=== PATIENT | female | born 1990 | race Caucasian/White ===

== ENCOUNTER → 2020-04-12 | Day surgery (SDC) | payer OTHER ==
[~2020-04-12] MED LIST: Bupivacaine 0.5%/EPINEPHrine 1:200,000 50 ML MDV ONE; Dexamethasone 4 MG/ML 5 ML MDV ONE; Ketorolac 15 MG/ML SDV IVPUSH ONE; Ketorolac 30 MG/ML SDV ONE; Lactated Ringers 1,000 ML IV SCH; Lactated Ringers 1,000 ML ONE; Lidocaine 1% 4 ML ONE; Lidocaine 1%/Sod Bicarbonate in NS 8.4% 1 ML Syringe IDERM PRN; Midazolam 1 MG/ML 2 ML SDV ONE; Ondansetron 4 MG/2 ML SDV IVPUSH PRN; Ondansetron 4 MG/2 ML SDV ONE; Propofol 200 MG/20 ML SDV ONE; Rocuronium 50 MG/5 ML Vial ONE; Sodium Chloride 0.9% 10 ML Syringe FLUSH PRN; ceFAZolin 1 GM Vial ONE; ePHEDrine Sulfate/0.9% NaCl/Pf 25 MG/5 ML SYRINGE IV ONE; fentaNYL 100 MCG/2 ML SDV IVPUSH PRN; fentaNYL 100 MCG/2 ML SDV ONE; fentaNYL 250 MCG/5 ML SDV ONE; traMADol 50 MG Tab PO ONE
--- NOTE | 2020-04-12 07:17 | PCM.PREANE ---
Preanesthetic Assessment - Procedure Proposed Procedure: lap hernia repair - Anesthesia/Transfusion/Family Hx Anesthesia History: Prior Anesthesia Without Reaction Family History of Anesthesia Reaction: No Transfusion History: No Prior Transfusion(s) - Review of Systems General: No Symptoms Pulmonary: No Symptoms Cardiovascular: No Symptoms Gastrointestinal: No Symptoms Neurological: Seizure (17 years ago-no meds- allergic reactions) Other: Reports: Anxiety - Physical Assessment NPO Status Date: 04/11/20 NPO Status Time: 20:30 Vital Signs: Last Vital Signs Temp 97.3 F 04/12/20 06:35 Pulse 64 04/12/20 06:35 Resp 16 04/12/20 06:35 BP 112/71 04/12/20 06:35 Pulse Ox 99 04/12/20 06:35 Height: 5 ft 5 in Weight: 64.41 kg ASA Class: 2 Mental Status: Alert & Oriented x3 Airway Class: Mallampati = 1 Dentition: Reports: Normal Dentition Thyro-Mental Finger Breadths: 3 Mouth Opening Finger Breadths: 3 ROM/Head Extension: Full Lungs: Clear to Auscultation, Normal Respiratory Effort Cardiovascular: Regular Rate, Regular Rhythm - Lab Values: Laboratory Last Values Urine HCG, Qual Negative (NEGATIVE) 04/12/20 06:37 - Allergies Allergies/Adverse Reactions: Allergies Allergy/AdvReac Type Severity Reaction Status Date / Time acetaminophen [From [place]] Allergy Nausea and Verified 04/11/20 16:47 Vomiting codeine Allergy nightmares Verified 04/11/20 16:47 hydrocodone [From [place]] Allergy Nausea and Verified 04/11/20 16:47 Vomiting Penicillins Allergy Nausea and Verified 04/11/20 16:47 Vomiting - Blood Blood Available: No - Acknowledgements Anesthesia Type Planned: General Anesthesia Pt an Appropriate Candidate for the Planned Anesthesia: Yes Alternatives and Risks of Anesthesia Discussed w Pt/Guardian: Yes Pt/Guardian Understands and Agrees with Anesthesia Plan: Yes PreAnesthesia Questionnaire HEENT History: Reports: Impaired Vision Cardiovascular History: Reports: None Respiratory History: Reports: None Gastrointestinal History: Reports: Other (See Below) Other Gastrointestinal History: incisional hernia, umbilical hernia Genitourinary History: Reports: None CHIEF OF PEDIATRIC UROLOGY History: Reports: None Musculoskeletal History: Reports: None Neurological History: Reports: Migraines (not had in 1.5 years), Seizure Psychiatric History: Reports: Anxiety Endocrine/Metabolic History: Reports: None Hematologic History: Reports: None Immunologic History: Reports: None Oncologic (Cancer) History: Reports: None Dermatologic History: Reports: None - Infectious Disease History Infectious Disease History: Reports: None - Past Surgical History Head Surgeries/Procedures: Reports: None HEENT Surgical History: Reports: None Cardiovascular Surgical History: Reports: None Respiratory Surgical History: Reports: None GI Surgical History: Reports: Hernia Repair/Other Female Surgical History: Reports: None Male Surgical History: Reports: None Endocrine Surgical History: Reports: None Neurological Surgical History: Reports: None Musculoskeletal Surgical History: Reports: None Oncologic Surgical History: Reports: None Dermatological Surgical History: Reports: None - SUBSTANCE USE Smoking Status *Q: Former Smoker (quit couple months ago) Tobacco Use Within Last Twelve Months: Cigarettes Second Hand Smoke Exposure: No Days Per Week of Alcohol Use: 0 Recreational Drug Use History: No - HOME MEDS Home Medications: Home Meds Escitalopram Oxalate 10 mg PO DAILY 04/11/20 [History] buPROPion [Wellbutrin SR] 150 mg PO DAILY 04/11/20 [History] hydrOXYzine HCL [hydrOXYzine] 25 - 50 mg PO Q6H PRN 04/11/20 [History] levonorgestreL [Mirena] 1 dose VAG ASDIRECTED 04/11/20 [History] - CURRENT (IN HOUSE) MEDS Current Meds: Current Medications Lactated Ringer's (Ringers, Lactated) 1,000 mls @ 125 mls/hr IV ASDIRECTED KARMA Stop: 04/12/20 23:00 Last Admin: 04/12/20 06:50 Dose: 125 mls/hr Lidocaine/Sodium Bicarbonate (Buffered Lidocaine 1% In Ns 8.4%) 0.25 ml IDERM ONETIME PRN PRN Reason: Prior to IV Start Stop: 04/12/20 18:00 Last Admin: 04/12/20 06:50 Dose: 0.25 ml Sodium Chloride (Saline Flush) 10 ml FLUSH ASDIRECTED PRN PRN Reason: Keep Vein Open Stop: 04/12/20 18:00
--- NOTE | 2020-04-12 10:00 | PCM.POSTAN ---
POST ANESTHESIA ASSESSMENT - MENTAL STATUS Mental Status: Alert - VITAL SIGNS Vital Signs: Last Vital Signs Temp 97.3 F 04/12/20 06:35 Pulse 64 04/12/20 06:35 Resp 16 04/12/20 06:35 BP 112/71 04/12/20 06:35 Pulse Ox 99 04/12/20 06:35 0953 102 15 98.0 119/58 100% - RESPIRATORY Respiratory Status: Respiratory Rate WNL, Airway Patent, O2 Saturation Stable, Supplemental Oxygen - CARDIOVASCULAR CV Status: Pulse Rate WNL, Blood Pressure Stable - GASTROINTESTINAL GI Status: No Symptoms - PAIN Pain Score: 0 - POST OP HYDRATION Hydration Status: Adequate & Stable
--- NOTE | 2020-04-12 10:11 | PCM.PRNOTE ---
- Free Text/Narrative Note: Date: 04/12/2020 Operation: diagnostic laparoscopy, excision of scar tissue at anterior abdominal wall, repair of ventral hernia with intraperitoneal onlay mesh. Pre-op antibiotics: 2 g ancef IV EBL: 10 cc Findings: dense scar tissue at site of prior primary ventral hernia repair with multiple ethibond sutures. Chronic granulomatous tissue at the level of the skin associated with some of these transfascial sutures. Small 5 mm epigastric hernia containing part of the falciform ligament. A circular 11 cm diameter Ventralite biologic-coated permanent mesh was placed. Detailed Report: The patient was taken to the OR and placed supine on the table. Time out was performed and general endotracheal anesthesia initiated. The left arm was tucked , and the abdomen was prepped and draped in usual sterile fashion. Ioban was applied to the abdomen. A total of 30 cc 0.5% marcaine with epinephrine was injected at incision sites for local anesthetic. A Veress needle was inserted at the LUQ and the peritoneal cavity was insufflated. At a site where air was aspirated with a needle and syringe in the left lower quadrant, a bladed 5 mm trocar was placed and a 5 mm 30 degree laparoscope inserted. There was no injury from Veress placement and the needle was removed. Additional 5 mm ports were placed at the left mid and upper abdomen. The anterior abdominal wall did not have any obvious hernia defect. There was dense scar tissue with visible ethibond suture from prior hernia repair. The overlying peritoneum was cut with scissors and all visible old suture removed. Scar tissue was debrided at a site just superior to the umbilicus. The fascia was opened at this site longitudinally along the midline for a distance of about 3 cm. During dissection , and division of the falciform to make a landing zone for mesh, a 5 mm hernia containing part of the falciform was noted. Next, an elliptical skin incision was made to encompass the chronic granulation tissue, and the skin and associated scar tissue was sharply debrided. There seemed to be chronic inflammatory change associated with the suture. All visible old suture was removed, and this tissue was sent for pathology analysis. A 12 mm port was then placed at this site to permit passage of a Ventralite 11 cm diameter circular biologic-coated permanent mesh. The mesh had been prepared with 0 vicryl suture placed at the edge at 4 quadrant intervals. The larger port was then removed and the fascia was closed primarily at this site with a few 0 vicryl sutures using the laparoscopic suture passer. After making measurements, small stab incisions were made at a 6 cm radius from the center of the 12 mm port site, and the mesh sutures were secured transfascially using the laparoscopic suture passer. The mesh appeared to lay well. The secure strap device was used to place tacks between the transfascial sutures for additional fixation. Pneumoperitoneum was then released, and the 5 mm ports were removed. Skin was closed at all sites with running subcuticular absorbable suture and dressed with dermabond. The patient tolerated the procedure well. Scooter Canada MD General Surgery
--- NOTE | 2020-04-12 11:01 | PCM48HPAN ---
Post Anesthesia Note - EVALUATION WITHIN 48HRS OF ANESTHETIC Vital Signs in Normal Range: Yes Patient Participated in Evaluation: Yes Respiratory Function Stable: Yes Airway Patent: Yes Cardiovascular Function Stable: Yes Hydration Status Stable: Yes Pain Control Satisfactory: Yes Nausea and Vomiting Control Satisfactory: Yes Mental Status Recovered: Yes Vital Signs: Last Vital Signs Temp 98.1 F 04/12/20 10:50 Pulse 74 04/12/20 10:50 Resp 18 04/12/20 10:50 BP 113/63 04/12/20 10:50 Pulse Ox 97 04/12/20 10:50 no complaints
== END | disposition home or self-care (01) ==
LOC: JD.SDS 06:31
PROVIDERS: ATTEND Surgery
DX: K43.2 Incisional hernia without obstruction or gangrene (principal); K66.8 Other specified disorders of peritoneum; L08.89 Other specified local infections of the skin and subcutaneous tissue; L90.5 Scar conditions and fibrosis of skin; F17.210 Nicotine dependence, cigarettes, uncomplicated; F41.9 Anxiety disorder, unspecified; Z88.5 Allergy status to narcotic agent; Z88.0 Allergy status to penicillin; Z79.899 Other long term (current) drug therapy
CPT/HCPCS: 49654; 81025; A9270; C1781; J0171; J0690; J1100; J1885; J2001; J2250; J2405; J2704; J2710; J3010; J3490; J7120; 00790

== ENCOUNTER 2021-01-26 22:00 | Emergency (ER) | payer OTHER ==
[2021-01-26] MEDS ORDERED: Ondansetron 4 MG/2 ML SDV IVPUSH ONE (22:21)
[2021-01-26] MEDS ORDERED: Sodium Chloride 0.9% 1,000 ML IV ONE (22:21)
[2021-01-26] MEDS ORDERED: Haloperidol Lactate 5 MG/ML SDV IM ONE (22:21)
[2021-01-26] MEDS ORDERED: Benztropine 1 MG Tab PO STA (22:21)
--- NOTE | 2021-01-26 22:24 | EDM.PDOC ---
ED HPI GENERAL MEDICAL PROBLEM - General Chief Complaint: Headache Stated Complaint: MIGRANE FOR THE PAST 3DAYS Time Seen by Provider: 01/26/21 22:10 Source of Information: Reports: Patient History Limitations: Reports: No Limitations - History of Present Illness INITIAL COMMENTS - FREE TEXT/NARRATIVE: Mrs. Padilla is a very pleasant 30-year-old woman with a past medical history of migraines since 2005 or 2007, who now presents with a headache for the past 3 days. She states that she feels a constant throbbing sensation to the entire right side of her head, that developed this past 01/23/2021. She has had nausea and vomiting, along with photophobia and phonophobia, although she denies visual changes, such as blurry vision, wavy lines, or flashing lights, and she denies neurologic symptoms, such as tingling, numbness, or weakness. She states that her current symptoms are similar to prior migraines, although the last time that she had a migraine was about 2 years ago. The patient states that she took some Tylenol, which has not helped. She states that she is not sure if she has ever been evaluated by a neurologist. She believes that the last imaging study of her head was 5 to 10 years ago. She has not previously been on anti-migraine medications. Here in the ED, the patient is found to be hemodynamically stable, afebrile, saturating 97% on room air. Prior to Thursday, the patient denies having a recent fever, chills, sore throat, ear pain, nasal or sinus congestion, cough, dyspnea, chest pain, palpitations, nausea, vomiting, constipation, diarrhea, abdominal pain, urinary symptoms, recent weight gain or weight loss, recent bloody bowel movements or black bowel movements, recent joint aches, headaches, or rashes. The patient's PCP is NERISSA Leon. She states that she has already received an influenza vaccine this season. Headache Pain Score (Numeric/FACES): 8 - Related Data Allergies Allergy/AdvReac Type Severity Reaction Status Date / Time acetaminophen [From [place]] AdvReac Nausea and Verified 04/13/20 13:38 Vomiting codeine AdvReac nightmares Verified 04/13/20 13:38 hydrocodone [From [place]] AdvReac Nausea and Verified 04/13/20 13:38 Vomiting Penicillins AdvReac Nausea and Verified 04/13/20 13:38 Vomiting Home Meds: Home Meds FLUoxetine [PROzac] 40 mg PO DAILY 01/26/21 [History] Past Medical History HEENT History: Reports: Impaired Vision Neurological History: Reports: Migraines (presumed) Psychiatric History: Reports: Anxiety - Past Surgical History HEENT Surgical History: Reports: Oral Surgery (dental extractions) GI Surgical History: Reports: Hernia, Abdominal (x 3) Social & Family History - Tobacco Use Tobacco Use Status *Q: Current Some Day Tobacco User Years of Tobacco use: 17 Packs/Tins Daily: 0.1 Tobacco Use Comment: Started smoking at 13 yrs old - Caffeine Use Caffeine Use: Reports: Soda - Alcohol Use Alcohol Use History: No - Recreational Drug Use Recreational Drug Use: No - Living Situation & Occupation Living situation: Reports: , with Spouse, with Family (1 child) 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 - Physical Exam Exam: See Below Exam Limited By: No Limitations General Appearance: Alert, WD/WN, No Apparent Distress Eye Exam: Bilateral Eye: EOMI, Normal Inspection, PERRL Ears: Normal External Exam, Normal Canal, Hearing Grossly Normal, Normal TMs Nose: Normal Inspection, Normal Mucosa, No Blood Throat/Mouth: Normal Inspection, Normal Lips, Normal Teeth, Normal Gums, Normal Oropharynx, Normal Voice, No Airway Compromise Head Exam: Atraumatic, Normocephalic Neck: Normal Inspection, Supple, Non-Tender, Full Range of Motion. No: Lymphadenopathy (L), Lymphadenopathy (R) Respiratory/Chest: No Respiratory Distress, Lungs Clear, Normal Breath Sounds, No Accessory Muscle Use Cardiovascular: Normal Peripheral Pulses, Regular Rate, Rhythm, No Edema, No Gallop, No JVD, No Murmur, No Rub GI/Abdominal: Normal Bowel Sounds, Soft, Non-Tender, No Organomegaly, No Distention, No Abnormal Bruit, No Mass Neuro Exam (Abbreviated): Alert, Oriented, CN II-XII Intact, Normal Cognition, No Motor/Sensory Deficits Back Exam: Normal Inspection, Full Range of Motion, NT Extremities: Normal Inspection, Normal Range of Motion, No Pedal Edema, Normal Capillary Refill Psychiatric: Normal Affect Skin Exam: Warm, Dry, Intact, Normal Color, No Rash Course - Vital Signs Last Recorded V/S: Last Vital Signs Temp 37.7 C 01/26/21 22:06 Pulse 81 01/26/21 22:06 Resp 16 01/26/21 22:06 BP 133/90 01/26/21 22:06 Pulse Ox 97 01/26/21 22:06 - Orders/Labs/Meds Meds: Medications Discontinued Medications Generic Name Dose Route Start Last Admin Trade Name Jeffery PRTiff Reason Stop Dose Admin Benztropine Mesylate 1 mg 01/26/21 22:21 01/26/21 22:31 Benztropine 1 Mg Tab PO 01/26/21 22:22 1 mg ONETIME STA Administration Haloperidol Lactate 5 mg 01/26/21 22:21 01/26/21 22:32 Haloperidol Lactate 5 Mg/Ml Sdv IM 01/26/21 22:22 5 mg ONETIME ONE Administration Sodium Chloride 1,000 mls @ 999 mls/hr 01/26/21 22:21 01/26/21 22:31 Normal Saline IV 01/26/21 23:21 999 mls/hr ONETIME ONE Administration Ondansetron HCl 4 mg 01/26/21 22:21 01/26/21 22:31 Ondansetron 4 Mg/2 Ml Sdv IVPUSH 01/26/21 22:22 4 mg ONETIME ONE Administration - Re-Assessments/Exams Free Text/Narrative Re-Assessment/Exam: 01/26/21 22:22 As above, the patient has been suffering from a right-sided headache, most likely a migraine, with associated nausea, vomiting, photophobia, and phonophobia, since Thursday. Her physical exam, including a thorough neurologic examination, is completely normal. I have ordered treatment with IM Haldol, oral Cogentin, IV Zofran, and IV fluid. 01/26/21 23:15 Notified by Tamara ROPER a few minutes ago that the patient did not get relief from the Haldol, indicating that her headache may not be a migraine. I do not know if her nausea improved with the Zofran or not. I planned to evaluate her now, however, I was in the middle of discharging a patient at the time. Tamara ROPER just informed me that the patient removed her own IV and left the ED without waiting for reevaluation. Departure - Departure Time of Disposition: 23:15 Disposition: Eloped 07 Condition: Good Clinical Impression: Headache, Nausea & vomiting, Photophobia, Phonophobia - Discharge Information *PRESCRIPTION DRUG MONITORING PROGRAM REVIEWED*: Not Applicable *COPY OF PRESCRIPTION DRUG MONITORING REPORT IN PATIENT JEFFY: Not Applicable Referrals: Stephanie Muller PA-C [Primary Care Provider] - Forms: ED Department Discharge Sepsis Event Note (ED) - Evaluation Sepsis Screening Result: No Definite Risk - Focused Exam Vital Signs: Vital Signs Temp Pulse Resp BP Pulse Ox 01/26/21 22:06 37.7 C 81 16 133/90 97
== END 2021-01-26 23:11 | disposition left against medical advice (07) ==
LOC: JD.ED 22:00
DX: R51.9 Headache, unspecified (principal); R11.2 Nausea with vomiting, unspecified; H53.149 Visual discomfort, unspecified; F40.8 Other phobic anxiety disorders; Z72.0 Tobacco use; Z88.6 Allergy status to analgesic agent; Z88.5 Allergy status to narcotic agent; Z88.0 Allergy status to penicillin
CPT/HCPCS: 96372; 96374; 99283; A9270; J1630; J2405; J7030; 99284

== ENCOUNTER 2022-02-05 15:20 | Emergency (ER) | payer OTHER ==
[2022-02-05] MEDS ORDERED: HYDROmorphone 0.5 MG/0.5 ML Syringe IM ONE (15:37)
[2022-02-05] MEDS ORDERED: Ondansetron 4 MG Tab.DIS PO ONE (15:37)
[2022-02-05] MEDS: Sodium Chloride 0.9% 10 ML Syringe FLUSH PRN ×2 (15:43→17:26)
[2022-02-05] MEDS ORDERED: Ondansetron 4 MG/2 ML SDV IVPUSH ONE (15:45)
[2022-02-05] MEDS ORDERED: Sodium Chloride 0.9% 1,000 ML IV SCH (15:45)
[2022-02-05] MEDS ORDERED: Sodium Chloride 0.9% 10 ML Syringe FLUSH ONE (15:50)
[2022-02-05] MEDS ORDERED: Iopamidol 612 MG/ML 100 ML Bottle IVPUSH ONE (15:50)
[2022-02-05] MEDS ORDERED: Sodium Chloride 0.9% 100 ML IV SCH (16:00)
[2022-02-05] MEDS ORDERED: HYDROmorphone 0.5 MG/0.5 ML Syringe IVPUSH ONE (17:35)
[2022-02-05] MEDS ORDERED: Magnesium Citrate Solution 296 ML Bottle PO ONE (18:26)
[2022-02-05] MEDS ORDERED: Dicyclomine 10 MG Cap PO ONE (18:26)
== END 2022-02-05 18:40 | disposition home or self-care (01) ==
LOC: JD.ED 15:20
DX: N83.201 Unspecified ovarian cyst, right side (principal); K59.09 Other constipation; Z88.5 Allergy status to narcotic agent; Z88.8 Allergy status to other drugs, medicaments and biological substances; Z88.0 Allergy status to penicillin; Z72.0 Tobacco use
CPT/HCPCS: 36415; 74177; 80053; 81001; 83690; 84703; 85025; 86140; 96372; 96374; 99284; A9270; J1170; J7030; Q9967; 99285